=== PATIENT | female | born 1985 | race Hispanic/Latino ===

== ENCOUNTER 2017-07-14 19:47 | Emergency (ER) | payer OTHER ==
[2017-07-14] MEDS ORDERED: LIDOCAINE HCL-MPF 1% 2ML VIAL ONE (20:20)
[2017-07-14] MEDS ORDERED: CEFTRIAXONE SODIUM 1 GM ONE (20:20)
== END 2017-07-14 20:37 | disposition home or self-care (01) ==
LOC: EDH 19:47
DX: J02.0 Streptococcal pharyngitis (principal); Z90.49 Acquired absence of other specified parts of digestive tract; Z72.0 Tobacco use
CPT/HCPCS: 96372; 99283; J0696; J3490

== ENCOUNTER 2020-07-29 10:29 | Emergency (ER) | payer OTHER ==
[~2020-07-29] VITALS: Ht 165.1 cm; Wt 83.9 kg
[2020-07-29 10:48] VITALS: BP 131/95
[2020-07-29] MEDS ORDERED: MORPHINE 4 MG SYG IV SCH (11:45)
[2020-07-29 12:09] LABS: BASOPHILS % (AUTO) 0.7 % (0.0-5.0); EOSINOPHILS % (AUTO) 1.4 % (0.0-8.0); HEMATOCRIT 39.6 % (36-48); LYMPHOCYTES % (AUTO) 28.3 % (21.0-51.0); MEAN CORPUSCULAR HEMOGLOBIN 29.7 pg (27.0-33.0); MEAN CORPUSCULAR HGB CONC 32.6 g/dL (32.0-36.0); MEAN CORPUSCULAR VOLUME 91.2 fL (79-99); MONOCYTES % (AUTO) 8.7 % (3.0-13.0); NEUTROPHILS % (AUTO) 60.6 % (40.0-77.0); PLATELET COUNT (AUTO) 305 K/uL (130-400); RED BLOOD CELL COUNT(AUTO) 4.34 MIL/uL (4.00-5.50); RED CELL DISTRIBUTION WIDTH 12.5 % (11.0-15.5); WHITE BLOOD COUNT (AUTO) 9.5 K/uL (4.8-10.8)
[2020-07-29 12:13] LABS: APPEARANCE,URINE Cloudy (CLEAR); BILIRUBIN,URINE Negative (NEGATIVE); COLOR,URINE Yellow (YELLOW); GLUCOSE, URINE (UA) Negative (NEGATIVE); KETONES,URINE Trace mg/dL (NEGATIVE); LEUKOCYTE ESTERASE ,URINE Negative (NEGATIVE); NITRATE,URINE Negative (NEGATIVE); OCCULT BLOOD,URINE Negative (NEGATIVE); PH,URINE 6.5 (5.0-8.0); PROTEIN,URINE Negative (NEGATIVE)
[2020-07-29 12:15] LABS: HCG,QUAL RESULT NEGATIVE (NEGATIVE)
[2020-07-29 12:19] LABS: BACTERIA,URINE Rare /HPF (None Seen); CREATININE 0.7 mg/dL (0.5-1.5); POTASSIUM 3.6 mmol/L (3.5-5.1); RBC,URINE 0-1 /HPF (0-1); SQUAMOUS EPITHELIAL CELL,UR Few /HPF (0-2); WBC,URINE 0-1 /HPF (0-1)
[2020-07-29 12:23] LABS: ALBUMIN 3.6 g/dL (3.5-5.0); BILIRUBIN,TOTAL 0.3 mg/dL (0.2-1.0); TOTAL PROTEIN, SERUM 6.8 g/dL (6.0-8.3)
[2020-07-29 13:02] VITALS: BP 131/95
[2020-07-29] MEDS ORDERED: IOHEXOL-350 75 ML VIAL IV ONE (13:14)
[2020-07-29] MEDS ORDERED: DiphenhydrAMINE HCL 50 MG/ML VIAL ONE (13:21)
[2020-07-29 15:43] VITALS: BP 121/78
== END 2020-07-29 17:52 | disposition home or self-care (01) ==
LOC: EDH 10:29 → EDBD 10:29 → EDH 17:52
DX: K29.70 Gastritis, unspecified, without bleeding (principal); K29.80 Duodenitis without bleeding
CPT/HCPCS: 36415; 74177; 80053; 81001; 81025; 82150; 83690; 85025; 93005; 96374; 96375; 99285; J1200; J2270; Q9967